=== PATIENT | male | born 1940 | race Caucasian/White ===

== ENCOUNTER 2022-04-09 18:48 | Emergency (ER) | payer OTHER ==
[2022-04-09] MEDS ORDERED: traMADol HCl 50 MG TAB ONE (20:10)
[2022-04-09] MEDS ORDERED: Clindamycin/D5W 600 mg/50 ml Premix Bag ONE (20:10)
== END 2022-04-09 21:18 ==
LOC: NAV ERS 18:48
DX: L03.211 Cellulitis of face (principal); I10 Essential (primary) hypertension; E03.9 Hypothyroidism, unspecified; E78.5 Hyperlipidemia, unspecified; I25.10 Atherosclerotic heart disease of native coronary artery without angina pectoris; Z79.82 Long term (current) use of aspirin; Z79.899 Other long term (current) drug therapy
CPT/HCPCS: 96365; J3490